=== PATIENT | female | born 1985 | race Caucasian/White ===

== ENCOUNTER → 2018-01-15 | Outpatient (CLI) | payer OTHER ==
[2018-01-15 15:40] LABS: BASO % 0.2 %; BASO ABS # 0.02 K/uL (0-0.2); EOS % 2.3 %; HEMATOCRIT 38.8 % (37-47); HEMOGLOBIN 13.9 g/dL (12.0-16.0); IG# 0.02 K/uL (0.00-0.02); LYMPH % 28.4 %; LYMPH ABS # 2.46 K/uL (1.2-3.4); MEAN CELL VOLUME 87.4 fL (80-100); MEAN CORPUSCULAR HEMOGLOBIN 31.3 pg (25-34); MEAN CORPUSCULAR HGB CONC 35.8 g/dl (32-36); MEAN PLATELET VOLUME 10.5 fL (7.4-10.4); MONO % 6.9 %; NEUT ABS # 5.37 K/uL (1.4-6.5); PLATELET COUNT 227 K/uL (130-400); RED CELL DISTRIBUTION WIDTH CV 12.2 % (11.5-14.5); RED CELL DISTRIBUTION WIDTH SD 39.2 fL (36.4-46.3); WHITE BLOOD COUNT 8.67 K/uL (4.8-10.8)
== END | disposition home or self-care (01) ==
LOC: MERGE 14:43 → C.LAB1850 14:43
PROVIDERS: ATTEND Obstetrics & Gynecology
DX: Z34.01 Encounter for supervision of normal first pregnancy, first trimester (principal)

== ENCOUNTER → 2018-06-25 | Outpatient (CLI) | payer OTHER | END | disposition home or self-care (01) | LOC: C.LAB1850 16:58 | PROVIDERS: ATTEND Obstetrics & Gynecology | DX: Z34.01 Encounter for supervision of normal first pregnancy, first trimester (principal) ==

== ENCOUNTER → 2018-07-23 | Outpatient (CLI) | payer OTHER | END | disposition home or self-care (01) | LOC: C.LAB1850 16:33 | PROVIDERS: ATTEND Obstetrics & Gynecology | DX: Z34.01 Encounter for supervision of normal first pregnancy, first trimester (principal) ==

== ENCOUNTER 2019-01-06 13:49 | Inpatient (IN) ==
[2019-01-06] MEDS ORDERED: OXYTOCIN 30 UNITS/500 ML BAG IV PRN ×2 (14:17→19:09)
[2019-01-06] MEDS ORDERED: LACTATED RINGER'S 1,000 ML IV SCH (14:30)
--- NOTE | 2019-01-06 14:32 | Anesthesiology Consultation ---
Date of Service January 06, 2019 Assessment & Plan Chart Review Chart Review: Acceptable Risk for Labor Epidural and Patient seen in Pre Admission Testing Consults Requested none ASA ASA2 Proposed Anesthesia Anesthesia Type: Labor Epidural Risk / Benefits Reviewed With: PT / POA / Parent / Guardian, Accepts Plan and Informed Consent Obtained NPO Date Last Intake of Fluids: 01/06/19 Time Last Intake of Fluids: 14:30 Date Last Intake of Solids: 01/06/19 Time Last Intake of Solids: 12:00 History Height/Weight Height: 1.52 m Weight: 64.682 kg Allergies Allergy/AdvReac Type Severity Reaction Status Date / Time No Known Allergies Allergy Verified 01/06/19 14:27 Medications Active Medications Generic Name Dose Route Start Last Admin Trade Name Freq PRN Reason Stop Dose Admin Lactated Ringer's 1,000 mls @ 999 mls/hr 01/06/19 14:17 01/06/19 14:34 Lr IV 02/05/19 14:16 999 mls/hr .Q1H1M PRN Administration (Pre-Anesthesia) Past Medical History Medical History No pertinent past medical history Past Surgical History Surgical History H/O wisdom tooth extraction Past Anesthesia History No Hx of Anesthesia Complications and No Family Hx of Anesthesia Complications History of PONV No Motion Sickness Screening History of Motion Sickness: No Social History Smoking Status: Never smoker Do You Dip or Chew Tobacco: No Hx Alcohol Use: No Hx Substance Use: No substance use type: does not use Exercise / Class Metabolic Activity II 4-5 Yardwork/Stairs/Walk up hill Physical Exam Vital Signs Last Vital Signs Temp 36.5 C 01/06/19 13:54 Pulse 83 01/06/19 14:37 Resp 20 01/06/19 13:54 BP 121/69 01/06/19 13:55 Pulse Ox 100 01/06/19 14:37 ENMT Mouth: no TMJ abnormality and no TMJ clicking Thyromental Distance: < 3.5 Finger Breadths Mallampati Class: II Neck normal visual inspection; neck extension not limited Respiratory Auscultation: lungs clear to auscultation bilaterally Cardiovascular Rate/Rhythm: regular rate and regular rhythm Psychiatric Orientation: alert and oriented x 3 Testing Laboratory Results 01/06/19 14:27
[2019-01-06] MEDS: LACTATED RINGER'S 1,000 ML IV PRN ×2 (14:34→15:35)
[2019-01-06 14:36] LABS: Hematocrit (blood only) 41.7 % (37-47); Hemoglobin 14.4 g/dL (12.0-16.0); Mean Platelet Volume 11.3 fL (7.4-10.4); Platelet Count 146 K/uL (130-400); RDW Coefficient of Variation 13.4 % (11.5-14.5); RDW Standard Deviation 43.9 fL (36.4-46.3); Red Blood Count 4.58 M/uL (4.2-5.4); White Blood Count 10.86 K/uL (4.8-10.8)
--- NOTE | 2019-01-06 14:36 | History & Physical Report ---
Date of Service January 06, 2019 Assessment & Plan (1) Normal intrauterine in third trimester: 33yo at 40.4 weeks GA. Labor Fetus: Cat 1 Labor: Progressing. Will augment PRN. AROM following epidural Vitals: WNL Pain: Epidural GBS Neg History of Present Illness Chief Complaint: CTX Primary Care Provider: Odalys Hebert 33yo at 40.4 weeks GA. Patient present with contractions. Denies LOF, VB. Good FM. Patient was /-2 in clinic on PNI: No significant issues Labs: A-, Rubella imm, GBS -. Allergies Allergy/AdvReac Type Severity Reaction Status Date / Time No Known Allergies Allergy Verified 01/06/19 14:27 Patient History Social History marital status: Current Living Situation: Spouse Feels Safe at Home: Yes Smoking Status: Never smoker Do You Dip or Chew Tobacco: No Hx Alcohol Use: No Hx Substance Use: No Beliefs That Will Affect Care: None Preferred Language: Thai Communication Ability: Effective Physical Exam 2 Vital Signs (Past 24 Hours): Last Vital Signs Temp 36.5 C 01/06/19 13:54 Pulse 99 H 01/06/19 13:55 Resp 20 01/06/19 13:54 BP 121/69 01/06/19 13:55 Genitourinary: Manual OB Exam: + cervical dilation 6 cm, + cervical effacement 80% and + station -1 OB Exam Monitor Tracing: + category I
[2019-01-06 14:45] LABS: Mean Corpuscular Hgb Conc 34.5 g/dL (32-36)
[2019-01-06] MEDS ORDERED: BUPIVACAINE 0.25% 30 ML VIAL ONE (14:50)
[2019-01-06] MEDS ORDERED: ePHEDrine sulfate 50 MG/ML AMP ONE (14:51)
[2019-01-06] MEDS ORDERED: fentaNYL citrate 100 MCG/2 ML VIAL ONE (14:51)
[2019-01-06] MEDS ORDERED: fentaNYL 2MCG/ML ROPIV 1.25MG/ML 100 ML BAG EPI ONE (14:51)
[2019-01-06] MEDS ORDERED: NALOXONE HCL 0.4 MG/1 ML VIAL/CARP IV PRN (15:35)
[2019-01-06] MEDS ORDERED: ONDANSETRON INJ 2 MG/ML 2 ML VIAL IV PRN (15:35)
[2019-01-06] MEDS ORDERED: NALBUPHINE HCL INJ 10 MG/ML AMP IV PRN (15:35)
[2019-01-06] MEDS ORDERED: fentaNYL 2MCG/ML ROPIV 1.25MG/ML 100 ML BAG EPI PRN (15:35)
[2019-01-06] MEDS ORDERED: LACTATED RINGER'S 1,000 ML IV PRN (15:35)
[2019-01-06] MEDS ORDERED: PROMETHAZINE HCL 12.5 MG in SODIUM CHLORIDE 0.9% 50 ML IV PRN (15:35)
[2019-01-06] MEDS ORDERED: NALOXONE HCL 1 MG in SODIUM CHLORIDE 0.9% 1000ML 1,000 ML IV PRN (15:35)
[2019-01-06] MEDS ORDERED: ePHEDrine sulfate 50 MG/ML AMP IV PRN (15:35)
[2019-01-06] MEDS ORDERED: DiphenhydrAMINE HCL 50 MG/ML VIAL IV PRN (15:35)
[2019-01-06] MEDS ORDERED: HYDROCORTISONE ACETATE 25 MG SUPP PR PRN (19:09)
[2019-01-06] MEDS ORDERED: BENZOCAINE 20% AER SPR 82.5 GM CAN EXT PRN (19:09)
[2019-01-06] MEDS ORDERED: BISACODYL 10 MG SUPP PR PRN (19:09)
[2019-01-06] MEDS ORDERED: DIPHTHERIA/TETANUS/PERTUSSIS 0.5 ML SYR/VIAL IM ONE (19:09)
[2019-01-06] MEDS ORDERED: SUPERCREAM 0.870% 15 GM JAR EXT PRN (19:09)
[2019-01-06] MEDS: IBUPROFEN 600 MG TAB PO PRN ×2 (19:22→23:42)
--- NOTE | 2019-01-06 19:54 | Delivery Summary ---
DATE OF OPERATION: 01/06/2019 PROCEDURE: Normal spontaneous vaginal delivery with vaginal and labial laceration repair. SURGEON: Agustin Strong MD PREOPERATIVE DIAGNOSES: 1. Single intrauterine at 40 weeks 4 days gestational age. 2. Rh negative. 3. GBS negative. 4. Labor. POSTOPERATIVE DIAGNOSES: Same, delivered. ESTIMATED BLOOD LOSS: 350 mL. DRAINS: None. FLUIDS: Continuous lactated ringer. URINE OUTPUT: 300 mL via straight catheterization after delivery. COMPLICATIONS: None. FINDINGS: Viable male infant with weight pending, Apgars of 7 and 9 at 1 and 5 minutes respectively. INDICATIONS: Ms. Mcguire is a 33-year-old admitted at 40 weeks 4 days gestational age in active labor. At initial evaluation, she was found to be 7 cm dilated, 80% effaced, -1 station. The patient progressed in labor, underwent artificial rupture of membranes at 9.5 cm dilation. The patient then progressed to complete and +1 station and felt the urge to push and pushed over intact perineum. The patient pushed for approximately an hour and 15 minutes. DESCRIPTION OF PROCEDURE: The patient progressed to 10 cm dilated, 100% effaced, positive 1 station, pushed over intact perineum with epidural anesthesia and delivered a viable male with weight and Apgars as noted above. Head of the delivered in RAMO position, rest into left transverse. One nuchal cord was noted which was easily reduced. Body and shoulders quickly followed. The was noted to be vigorous soon after delivery and a 1-minute delayed cord clamping was initiated, after which the cord was double clamped and cut. Cord blood was then obtained. Attention was then turned to deliver the placenta, it was delivered intact with 3-vessel cord with gentle cord traction. On inspection of the vagina, perineum, and cervix, there was noted to be a left vaginal laceration with extension to the left labia majora and minora. An 8 mL of lidocaine was distributed throughout the laceration and was closed with 3-0 Vicryl. The needle, sponge and instrument counts were correct at completion of the case. I attest to the content of the Intraoperative Record and any orders documented therein. Any exception s are noted below.
[2019-01-06] MEDS: DOCUSATE SODIUM 100 MG CAP PO SCH (21:00)
[2019-01-06] MEDS: ACETAMINOPHEN 325 MG TAB PO PRN (23:43)
--- NOTE | 2019-01-07 03:23 | Anesthesia Procedure Note ---
Date of Service January 07, 2019 Anesthesia Post Epidural Note Vital Signs Vital Signs: Temp Pulse Pulse Resp BP BP Pulse Ox 01/06/19 23:25 37.8 C H 89 18 114/75 01/06/19 20:41 111 H 112/71 01/06/19 20:40 18 01/06/19 20:11 120 H 109/68 01/06/19 20:10 18 01/06/19 19:56 104 H 105/69 01/06/19 19:40 114 H 18 110/56 L 01/06/19 19:26 105 H 115/57 L 01/06/19 19:25 18 01/06/19 19:10 37.3 C 105 H 18 115/57 L 78 L 01/06/19 18:55 96 H 113/65 01/06/19 18:48 117 H 116/59 L 01/06/19 18:39 106 H 123/56 L 01/06/19 18:33 110 H 113/66 01/06/19 18:18 122 H 131/90 01/06/19 18:03 148 H 138/65 01/06/19 17:52 147 H 78 L 01/06/19 17:48 150 H 146/72 H 01/06/19 17:47 146 H 97 01/06/19 17:46 146 H 91 01/06/19 17:42 138 H 97 01/06/19 17:37 144 H 100 01/06/19 17:34 134 H 147/61 H 01/06/19 17:32 123 H 99 01/06/19 17:27 123 H 99 01/06/19 17:22 121 H 100 01/06/19 17:18 110 H 142/96 H 01/06/19 17:17 105 H 100 01/06/19 17:12 106 H 99 01/06/19 17:07 109 H 100 01/06/19 17:03 115 H 124/82 01/06/19 17:02 102 H 98 01/06/19 16:57 97 H 100 01/06/19 16:52 116 H 100 01/06/19 16:48 100 H 127/74 01/06/19 16:47 99 H 99 01/06/19 16:42 104 H 98 01/06/19 16:37 97 H 99 01/06/19 16:36 100 H 123/71 01/06/19 16:32 97 H 100 01/06/19 16:27 101 H 100 01/06/19 16:22 104 H 100 01/06/19 16:17 100 H 123/79 100 01/06/19 16:13 88 133/78 01/06/19 16:12 93 H 100 01/06/19 16:07 99 H 117/68 100 01/06/19 16:02 92 H 100 01/06/19 16:01 94 H 127/72 01/06/19 15:59 84 126/71 01/06/19 15:57 93 H 123/68 100 01/06/19 15:55 97 H 131/72 01/06/19 15:53 93 H 126/76 01/06/19 15:52 98 H 100 01/06/19 15:51 112 H 123/74 01/06/19 15:49 87 130/64 01/06/19 15:47 94 H 116/66 100 01/06/19 15:43 101 H 155/82 H 01/06/19 15:42 92 H 100 01/06/19 15:41 94 H 112/68 01/06/19 15:39 102 H 109/73 01/06/19 15:37 88 116/75 100 01/06/19 15:35 101 H 126/70 01/06/19 15:33 94 H 123/69 01/06/19 15:32 95 H 100 01/06/19 15:31 93 H 130/66 01/06/19 15:29 87 129/64 01/06/19 15:27 88 116/70 100 01/06/19 15:25 91 H 116/66 01/06/19 15:23 96 H 128/73 01/06/19 15:22 93 H 100 01/06/19 15:21 88 127/71 01/06/19 15:19 100 H 139/79 01/06/19 15:17 88 132/70 100 01/06/19 15:15 80 133/65 01/06/19 15:13 97 H 134/72 01/06/19 15:12 97 H 100 01/06/19 15:11 93 H 136/66 01/06/19 15:09 100 H 140/66 01/06/19 15:07 88 124/61 100 01/06/19 15:05 101 H 130/67 01/06/19 15:03 100 H 131/65 01/06/19 15:02 98 H 100 01/06/19 15:01 103 H 139/68 01/06/19 14:59 92 H 129/66 01/06/19 14:57 94 H 131/67 100 01/06/19 14:52 82 100 01/06/19 14:47 79 100 01/06/19 14:42 83 100 01/06/19 14:37 83 100 01/06/19 14:32 98 H 100 01/06/19 13:55 99 H 121/69 01/06/19 13:54 36.5 C 20 Pain Intensity Bilateral Lower Abdomen: Pain Intensity: 3 Notes Mental Status: alert / awake / arousable and participated in evaluation Nausea / Vomiting: adequately controlled Pain: adequately controlled Airway Patency, RR, SpO2: stable & adequate BP & HR: stable & adequate Hydration State: stable & adequate Neuraxial Anesthesia: was administered and sensory block resolved Anesthetic Complications: no major complications apparent and Pt Satisfied with anesthetic care Epidural: Removed without complications and With tip intact Notes: Small bruise at sight of epidural placement. Patient denies ACOSTA. She has been ambulating without difficulty and denies any residual numbness or tingling.
[2019-01-07 06:53] LABS: Hemoglobin 10.9 g/dL (12.0-16.0); Mean Corpuscular Hgb Conc 34.1 g/dL (32-36); Mean Corpuscular Volume 91.7 fL (80-100); Mean Platelet Volume 10.9 fL (7.4-10.4); Platelet Count 134 K/uL (130-400); RDW Coefficient of Variation 13.4 % (11.5-14.5); RDW Standard Deviation 44.8 fL (36.4-46.3); Red Blood Count 3.49 M/uL (4.2-5.4); White Blood Count 14.72 K/uL (4.8-10.8)
--- NOTE | 2019-01-07 07:09 | Anesthesia Procedure Note ---
Date of Service January 07, 2019 Anesthesia Post Epidural Note Vital Signs Vital Signs: Temp Pulse Pulse Resp BP BP Pulse Ox 01/07/19 05:00 37.1 C 89 18 114/75 01/06/19 23:25 37.8 C H 89 18 114/75 01/06/19 20:41 111 H 112/71 01/06/19 20:40 18 01/06/19 20:11 120 H 109/68 01/06/19 20:10 18 01/06/19 19:56 104 H 105/69 01/06/19 19:40 114 H 18 110/56 L 01/06/19 19:26 105 H 115/57 L 01/06/19 19:25 18 01/06/19 19:10 37.3 C 105 H 18 115/57 L 78 L 01/06/19 18:55 96 H 113/65 01/06/19 18:48 117 H 116/59 L 01/06/19 18:39 106 H 123/56 L 01/06/19 18:33 110 H 113/66 01/06/19 18:18 122 H 131/90 01/06/19 18:03 148 H 138/65 01/06/19 17:52 147 H 78 L 01/06/19 17:48 150 H 146/72 H 01/06/19 17:47 146 H 97 01/06/19 17:46 146 H 91 01/06/19 17:42 138 H 97 01/06/19 17:37 144 H 100 01/06/19 17:34 134 H 147/61 H 01/06/19 17:32 123 H 99 01/06/19 17:27 123 H 99 01/06/19 17:22 121 H 100 01/06/19 17:18 110 H 142/96 H 01/06/19 17:17 105 H 100 01/06/19 17:12 106 H 99 01/06/19 17:07 109 H 100 01/06/19 17:03 115 H 124/82 01/06/19 17:02 102 H 98 01/06/19 16:57 97 H 100 01/06/19 16:52 116 H 100 01/06/19 16:48 100 H 127/74 01/06/19 16:47 99 H 99 01/06/19 16:42 104 H 98 01/06/19 16:37 97 H 99 01/06/19 16:36 100 H 123/71 01/06/19 16:32 97 H 100 01/06/19 16:27 101 H 100 01/06/19 16:22 104 H 100 01/06/19 16:17 100 H 123/79 100 01/06/19 16:13 88 133/78 01/06/19 16:12 93 H 100 01/06/19 16:07 99 H 117/68 100 01/06/19 16:02 92 H 100 01/06/19 16:01 94 H 127/72 01/06/19 15:59 84 126/71 01/06/19 15:57 93 H 123/68 100 01/06/19 15:55 97 H 131/72 01/06/19 15:53 93 H 126/76 01/06/19 15:52 98 H 100 01/06/19 15:51 112 H 123/74 01/06/19 15:49 87 130/64 01/06/19 15:47 94 H 116/66 100 01/06/19 15:43 101 H 155/82 H 01/06/19 15:42 92 H 100 01/06/19 15:41 94 H 112/68 01/06/19 15:39 102 H 109/73 01/06/19 15:37 88 116/75 100 01/06/19 15:35 101 H 126/70 01/06/19 15:33 94 H 123/69 01/06/19 15:32 95 H 100 01/06/19 15:31 93 H 130/66 01/06/19 15:29 87 129/64 01/06/19 15:27 88 116/70 100 01/06/19 15:25 91 H 116/66 01/06/19 15:23 96 H 128/73 01/06/19 15:22 93 H 100 01/06/19 15:21 88 127/71 01/06/19 15:19 100 H 139/79 01/06/19 15:17 88 132/70 100 01/06/19 15:15 80 133/65 01/06/19 15:13 97 H 134/72 01/06/19 15:12 97 H 100 01/06/19 15:11 93 H 136/66 01/06/19 15:09 100 H 140/66 01/06/19 15:07 88 124/61 100 01/06/19 15:05 101 H 130/67 01/06/19 15:03 100 H 131/65 01/06/19 15:02 98 H 100 01/06/19 15:01 103 H 139/68 01/06/19 14:59 92 H 129/66 01/06/19 14:57 94 H 131/67 100 01/06/19 14:52 82 100 01/06/19 14:47 79 100 01/06/19 14:42 83 100 01/06/19 14:37 83 100 01/06/19 14:32 98 H 100 01/06/19 13:55 99 H 121/69 01/06/19 13:54 36.5 C 20 Pain Intensity Bilateral Lower Abdomen: Pain Intensity: 3 Notes Mental Status: alert / awake / arousable Nausea / Vomiting: adequately controlled Pain: adequately controlled Airway Patency, RR, SpO2: stable & adequate BP & HR: stable & adequate Hydration State: stable & adequate Neuraxial Anesthesia: was administered Anesthetic Complications: no major complications apparent Epidural: Removed without complications and With tip intact Notes: patient has been ambulating w/o back pain;w/o lower extremity weakness, paresthesias, numbness or pain.No c/o bowel or bladder incontinence.Patient is neurologically intact.
--- NOTE | 2019-01-07 07:44 | Obstetrical Progress Note ---
Date of Service <Teetee Jasso MD - Last Filed: 01/07/19 07:44> January 07, 2019 Assessment & Plan <Teetee Jasso MD - Last Filed: 01/07/19 07:44> (1) (spontaneous vaginal delivery): 33 YO AT 40.4 WEEKS ON Dec. A-, RUBELLA IMMUNE, gbs NEG DISCHARGE TODAY-instructions reviewed Day #:: 1 Subjective <Teetee Jasso MD - Last Filed: 01/07/19 07:44> Ambulation: ambulating normally Voiding: no voiding problems Passing Gas:: Yes Diet Tolerance:: regular diet Lochia:: Moderate Feeding Type:: breast feeding Current Pain Level(1-10): 3 Constitutional: no fever and no chills Respiratory: no dyspnea Cardiovascular: no chest pain, no palpitations, no lightheadedness and no calf pain Gastrointestinal: no nausea and no vomiting Genitourinary (female): no dysuria Neurologic: no headache(s) Physical Exam <Teetee Jasso MD - Last Filed: 01/07/19 07:44> Vital Signs (Past 24 Hours) Last Vital Signs Temp 37.1 C 01/07/19 05:00 Pulse 89 01/07/19 05:00 Resp 18 01/07/19 05:00 BP 114/75 01/07/19 05:00 Pulse Ox 78 L 01/06/19 19:10 Constitutional WD/WN, vitals as above Respiratory normal respiratory effort, lungs clear to auscultation Cardiovascular RRR, no murmur, no edema Extremities: no calf tenderness Genitourinary OB Exam Abdomen: + fundal height Fundus: + firm and + relation to umbilicus (1 BELOW) Results & Data <Teetee Jasso MD - Last Filed: 01/07/19 07:44> Laboratory Results Laboratory Results - last 24 hr 01/06/19 01/07/19 14:27 06:38 WBC 10.86 H 14.72 H RBC 4.58 3.49 L Hgb 14.4 10.9 L D Hct 41.7 32.0 L MCV 91.0 91.7 MCH 31.4 31.2 MCHC 34.5 34.1 RDW Std Deviation 43.9 44.8 RDW Coeff of Chano 13.4 13.4 Plt Count 146 134 MPV 11.3 H 10.9 H Medications Administered Home Medications vit no.[id number] [ Vitamin] 1 tab PO HS 01/06/19 [History Confirmed 01/06/19] Active Medications Acetaminophen (Tylenol) 650 mg PO Q6H PRN PRN Reason: Pain/ACOSTA/Fever Stop: 02/05/19 19:08 Last Admin: 01/06/19 23:43 Dose: 650 mg Benzocaine (Dermoplast Pain Relieving [place]) 1 appln EXT PRN PRN PRN Reason: Perineal Discomfort Stop: 02/05/19 19:08 Last Admin: 01/06/19 21:00 Dose: 82.5 appln Bisacodyl (Dulcolax) 5 mg PO 1999 [facility] Stop: 01/07/19 20:01 Bisacodyl (Dulcolax) 10 mg SD DAILY PRN PRN Reason: No BM on 2nd post- day Stop: 02/05/19 19:08 Cocaine HCl (Supercream 0.870%) 1 gm EXT BID PRN PRN Reason: Hemorrhoidal Inflammation Stop: 01/20/19 19:08 Docusate Sodium (Colace) 100 mg PO BID [facility] Stop: 02/05/19 20:59 Last Admin: 01/06/19 21:00 Dose: 100 mg Hydrocortisone (Anusol Hc) 25 mg SD BID PRN PRN Reason: Hemorrhoidal Inflammation Stop: 02/05/19 19:08 Oxytocin (Pitocin) 30 units in 500 mls @ 333.333 mls/hr IV .Q1H30M PRN; Protocol PRN Reason: BLEEDING CONTROL Stop: 02/05/19 19:08 Ibuprofen (Motrin) 600 mg PO Q4H PRN PRN Reason: Pain/ACOSTA/Cramping/Fever Stop: 02/05/19 19:08 Last Admin: 01/06/19 23:42 Dose: 600 mg Prenat Multivit/Guzzler Builder/Iron/Folic Ac ( Vitamin) 1 tab PO QAM [facility] Stop: 02/06/19 08:59 <Agustin Strong MD - Last Filed: 01/10/19 09:23> Co-Signing Physician Notes Patient evaluated and agree with the above finding and plan
[2019-01-07] MEDS: ACETAMINOPHEN 325 MG TAB PO PRN ×2 (08:05→18:46)
[2019-01-07] MEDS: IBUPROFEN 600 MG TAB PO PRN ×3 (08:05→22:12)
[2019-01-07] MEDS: PRENATAL VITAMIN 1 TAB PO SCH (08:06)
[2019-01-07] MEDS: DOCUSATE SODIUM 100 MG CAP PO SCH ×2 (08:06→21:21)
[2019-01-07] MEDS ORDERED: BISACODYL 5 MG TABEC PO SCH (20:00)
[2019-01-08] MEDS: ACETAMINOPHEN 325 MG TAB PO PRN ×2 (00:45→12:14)
[2019-01-08 06:43] LABS: Hematocrit (blood only) 29.3 % (37-47); Hemoglobin 9.7 g/dL (12.0-16.0)
--- NOTE | 2019-01-08 06:49 | Obstetrical Progress Note ---
Date of Service <Teetee Jasso MD - Last Filed: 01/08/19 06:49> January 08, 2019 Assessment & Plan <Teetee Jasso MD - Last Filed: 01/08/19 06:49> (1) (spontaneous vaginal delivery): 33 YO AT 40.4 WEEKS ON Dec. A-, RUBELLA IMMUNE, gbs NEG PPD #2 DISCHARGE TODAY-instructions reviewed Subjective <Teetee Jasso MD - Last Filed: 01/08/19 06:49> Ambulation: ambulating normally Voiding: no voiding problems Passing Gas:: Yes Diet Tolerance:: regular diet Lochia:: Moderate Feeding Type:: breast feeding Current Pain Level(1-10): 3 Constitutional: no fever and no chills Respiratory: no dyspnea Cardiovascular: no chest pain, no palpitations and no edema Gastrointestinal: no nausea and no vomiting Neurologic: no headache(s) Physical Exam <Teetee Jasso MD - Last Filed: 01/08/19 06:49> Vital Signs (Past 24 Hours) Last Vital Signs Temp 36.9 C 01/07/19 20:30 Pulse 80 01/07/19 20:30 Resp 18 01/07/19 20:30 BP 111/74 01/07/19 20:30 Pulse Ox 78 L 01/06/19 19:10 Respiratory normal respiratory effort, lungs clear to auscultation Cardiovascular RRR, no murmur, no edema Genitourinary OB Exam Abdomen: + fundal height Fundus: + firm Results & Data <Teetee Jasso MD - Last Filed: 01/08/19 06:49> Laboratory Results Laboratory Results - last 24 hr 01/07/19 01/07/19 01/08/19 06:38 06:38 06:26 WBC 14.72 H RBC 3.49 L Hgb 10.9 L D 9.7 L Hct 32.0 L 29.3 L MCV 91.7 MCH 31.2 MCHC 34.1 RDW Std Deviation 44.8 RDW Coeff of Chano 13.4 Plt Count 134 MPV 10.9 H Blood Type A Negative Antibody Screen NEGATIVE Screen Negative Medications Administered Home Medications vit no.[id number] [ Vitamin] 1 tab PO HS 01/06/19 [History Confirmed 01/06/19] Active Medications Acetaminophen (Tylenol) 650 mg PO Q6H PRN PRN Reason: Pain/ACOSTA/Fever Stop: 02/05/19 19:08 Last Admin: 01/08/19 00:45 Dose: 650 mg Benzocaine (Dermoplast Pain Relieving [place]) 1 appln EXT PRN PRN PRN Reason: Perineal Discomfort Stop: 02/05/19 19:08 Last Admin: 01/06/19 21:00 Dose: 82.5 appln Bisacodyl (Dulcolax) 10 mg [place] DAILY PRN PRN Reason: No BM on 2nd post- day Stop: 02/05/19 19:08 Cocaine HCl (Supercream 0.870%) 1 gm EXT BID PRN PRN Reason: Hemorrhoidal Inflammation Stop: 01/20/19 19:08 Docusate Sodium (Colace) 100 mg PO BID [facility] Stop: 02/05/19 20:59 Last Admin: 01/07/19 21:21 Dose: 100 mg Hydrocortisone (Anusol Hc) 25 mg [place] BID PRN PRN Reason: Hemorrhoidal Inflammation Stop: 02/05/19 19:08 Oxytocin (Pitocin) 30 units in 500 mls @ 333.333 mls/hr IV .Q1H30M PRN; Protocol PRN Reason: BLEEDING CONTROL Stop: 02/05/19 19:08 Ibuprofen (Motrin) 600 mg PO Q4H PRN PRN Reason: Pain/ACOSTA/Cramping/Fever Stop: 02/05/19 19:08 Last Admin: 01/07/19 22:12 Dose: 600 mg Prenat Multivit/[place]/Iron/Folic Ac ( Vitamin) 1 tab PO QAM [facility] Stop: 02/06/19 08:59 Last Admin: 01/07/19 08:06 Dose: 1 tab <Charu Escudero MD - Last Filed: 01/08/19 08:29> Co-Signing Physician Notes Discharge home today. Did receive RhoGAM.
[2019-01-08] MEDS: DOCUSATE SODIUM 100 MG CAP PO SCH (08:35)
[2019-01-08] MEDS: IBUPROFEN 600 MG TAB PO PRN ×2 (08:35→15:38)
[2019-01-08] MEDS: PRENATAL VITAMIN 1 TAB PO SCH (08:35)
--- NOTE | 2019-01-08 12:19 | Obstetrical Progress Note ---
Date of Service January 08, 2019 Subjective Patient is reporting neck pain, feels like it is musculoskeletal, feels like it is related to pushing. When she sits up, and turns her head, her neck muscles ache. Normal vitals. Benign physical exam. Offered dose of flexeril to see if this helps. She is agreeable. Physical Exam 2 Vital Signs (Past 24 Hours): Last Vital Signs Temp 36.7 C 01/08/19 07:50 Pulse 90 01/08/19 07:50 Resp 20 01/08/19 07:50 BP 104/67 01/08/19 07:50 Pulse Ox 78 L 01/06/19 19:10
[2019-01-08] MEDS ORDERED: CYCLOBENZAPRINE HCL 10 MG TAB PO ONE (13:00)
--- NOTE | 2019-01-08 16:03 | Obstetrical Progress Note ---
Date of Service January 08, 2019 Subjective Reports improvement with neck pain/stiffness after rest and 1 dose flexeril. Patient feels like she can move much better. Would like to go home. Will give script for 10tabs flexeril. She is aware of instructions to return immediately to hospital if any increased pain, nonresolution of pain, or new onset of any additional symptoms (such as headache, weakness, dizziness, nausea, vomiting, etc). She is agreeable. Notation of vitals that are automatically pulling into note: patient's O2 saturation is not actually 78; this is a reading that was likely erroneous from Monday. There is no obvious way to take it out of [place]. Physical Exam 2 Vital Signs (Past 24 Hours): Last Vital Signs Temp 36.7 C 01/08/19 07:50 Pulse 90 01/08/19 07:50 Resp 20 01/08/19 07:50 BP 104/67 01/08/19 07:50 Pulse Ox 78 L 01/06/19 19:10
== END 2019-01-08 18:08 | disposition home or self-care (01) | DRG 807 ==
LOC: OPB 13:49 → 4S1 13:50 → 4S2 21:15

== ENCOUNTER 2024-06-28 23:50 | Inpatient (IN) ==
[2024-06-29] MEDS ORDERED: LIDOCAINE 1% LOCAL 20 ML VIAL INFIL PRN (00:37)
[2024-06-29] MEDS ORDERED: OXYTOCIN 30 UNITS/NSS 30 UNITS/500 ML BAG IV PRN ×2 (00:37→01:51)
[2024-06-29] MEDS ORDERED: CALCIUM CARBONATE 500 MG CHEWABLE TAB PO PRN (00:37)
--- NOTE | 2024-06-29 00:44 | History & Physical Report ---
Date of Service June 29, 2024 Assessment & Plan (1) Multigravida of advanced maternal age: Plan: IUP at 39 weeks with SPROM and contractions GBS- negative epidural when requested anticipate vaginal History of Present Illness Primary Care Provider: Odalys Hebert DO Patient is a 38 yo female EDC07[birth year] who presents at 39 1/7 weeks with SPROM for clear fluid and spontaneous contractions Allergies Allergy/AdvReac Type Severity Reaction Status Date / Time No Known Allergies Allergy Verified 06/29/24 00:12 Home Medications Medication Instructions Recorded Confirmed Type vits no.124-ferrous fum 1 tab PO HS 01/06/19 06/29/24 History 27 mg iron-folic acid 800 mcg tablet ( Vitamin) ascorbic acid (vitamin C) 500 mg 500 mg PO QAM 11/02/22 06/29/24 History tablet (Vitamin C) aspirin [Baby Aspirin] 1 tab PO DAILY 12/18/23 06/29/24 History Patient History Medical History 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 Denies family history of Ovarian cancer Breast cancer Colorectal cancer Hypertension Social History (Updated 12/18/23 @ 08:54 by Ade Houston) Smoking Status: Never smoker Second Hand Exposure: No; Do You Dip or Chew Tobacco: No; Hx Alcohol Use: Yes Hx Substance Use: No Preferred Language: Martiniquais Communication Ability: Effective Visual Impairment: No Limitations Chro Required: No Beliefs That Will Affect Care: None marital status: marital status details: Jair Mcguire (37) [phone] Current Living Situation: Spouse Current Living Situation Comment: house with and son current occupational status: employed 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 [employer] Other Information That Helps Us Care for You: No Feels Safe at Home: Yes Safety Concerns: Feels Safe At This Time Assistive Devices: None Review of Systems All systems reviewed & are unremarkable except as noted in HPI & below Physical Exam Constitutional: WD/WN, vitals as above Psychiatric: A+Ox3, euthymic affect Genitourinary: OB Exam Abdomen: + vertex and + irregular contractions Manual OB Exam: + cervical dilation 4 cm OB Exam Monitor Tracing: + external FHT monitor used, + external uterine monitor used, + category I and + normal FHT variability Results & Data Vital Signs (Past 12 Hours) Vital Signs Temp Pulse Resp BP O2 Del Method 06/29/24 00:13 99.5 F 18 Room Air 06/29/24 00:08 99.5 F 86 18 120/71 Code Status & VTE Plan VTE Prophylaxis Plan VTE Prophylaxis will be ordered: No Coding Level of Care Code None Diagnoses Multigravida of advanced maternal age O09.529
[2024-06-29] MEDS: LACTATED RINGER'S 1,000 ML IV PRN (01:00)
[2024-06-29 01:21] LABS: Hematocrit (blood only) 37.4 % (37.0-47.0); Hemoglobin 12.9 g/dl (12.0-16.0); Mean Corpuscular Hemoglobin 31.2 pg (25.0-34.0); Mean Corpuscular Hgb Conc 34.5 g/dL (32.0-36.0); Mean Corpuscular Volume 90.6 fL (80.0-100.0); Platelet Count 135 K/uL (130-400); RDW Coefficient of Variation 13.4 % (11.5-14.5); RDW Standard Deviation 43.8 fL (36.4-46.3); Red Blood Count 4.13 M/uL (4.20-5.40); White Blood Count 9.37 K/ul (4.8-10.8)
[2024-06-29] MEDS ORDERED: SODIUM CHLORIDE 0.9% PF INJ 10 ML VIAL EPI PRN (03:18)
[2024-06-29] MEDS ORDERED: LIDOCAINE 2% MPF LOCAL 5 ML VIAL EPI PRN (03:18)
[2024-06-29] MEDS ORDERED: BUPIVACAINE 0.25% PF 30 ML VIAL EPI PRN (03:18)
[2024-06-29] MEDS ORDERED: NALOXONE HCL 0.4 MG/1 ML VIAL/CARP IV PRN (03:18)
[2024-06-29] MEDS ORDERED: fentaNYL citrate PF 100 MCG/2 ML VIAL EPI PRN (03:18)
[2024-06-29] MEDS ORDERED: NALOXONE HCL 1 MG in SODIUM CHLORIDE 0.9% 1,000 ML IV PRN (03:18)
[2024-06-29] MEDS ORDERED: ROPIVACAINE 0.5% PF 5 MG/ML 20 ML VIAL EPI PRN (03:18)
[2024-06-29] MEDS ORDERED: diphenhydrAMINE 50 MG/ML VIAL IV PRN (03:18)
[2024-06-29] MEDS ORDERED: ePHEDrine sulfate 50 MG/ML AMP IV PRN (03:18)
[2024-06-29] MEDS ORDERED: NALBUPHINE HCL 5 MG in SYRINGE 0 ML IV PRN (03:18)
[2024-06-29] MEDS ORDERED: PROMETHAZINE HCL 6.25 MG in SODIUM CHLORIDE 0.9% 50 ML IV PRN (03:18)
--- NOTE | 2024-06-29 03:18 | Anesthesiology Consultation ---
Date of Service June 29, 2024 Assessment & Plan Chart Review Chart Review: Patient NOT seen in Pre Admission Testing and Acceptable Risk for Labor Epidural Consults Requested none ASA ASA2 Proposed Anesthesia Anesthesia Type: Labor Epidural Risk / Benefits Reviewed With: PT / POA / Parent / Guardian, Accepts Plan and Informed Consent Obtained History Height/Weight Height: 5 ft Weight: 64.41 kg Allergies Allergy/AdvReac Type Severity Reaction Status Date / Time No Known Allergies Allergy Verified 06/29/24 00:12 Medications Home Medications Medication Instructions Recorded Confirmed Last Taken vits [id number] fum 1 tab PO HS 01/06/19 06/29/24 06/28/24 27 mg iron-folic acid 800 mcg tablet ( Vitamin) ascorbic acid (vitamin C) 500 mg 500 mg PO QAM 11/02/22 06/29/24 06/28/24 tablet (Vitamin C) aspirin [Baby Aspirin] 1 tab PO DAILY 12/18/23 06/29/24 06/28/24 Active Medications Generic Name Dose Route Start Last Admin Trade Name Freq PRN Reason Stop Dose Admin Lactated Ringer's 1,000 mls @ 125 mls/hr 06/29/24 00:37 06/29/24 03:07 Lr IV 07/01/24 00:36 125 mls/hr .Q8H PRN Administration L&D Protocol Protocol Past Medical History Medical History 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 Denies family history of Ovarian cancer Breast cancer Colorectal cancer Hypertension Past Surgical History Surgical History S/P dilatation and curettage H/O wisdom tooth extraction Past Anesthesia History No Hx of Anesthesia Complications and No Family Hx of Anesthesia Complications History of PONV No Hx of PONV and No Hx of Motion Sickness Social History Smoking Status: Never smoker Do You Dip or Chew Tobacco: No Hx Alcohol Use: Yes alcohol intake frequency: a few times a month Hx Substance Use: No substance use type: does not use Physical Exam Vital Signs Last Vital Signs Temp 36.6 C 06/29/24 02:36 Pulse 71 06/29/24 03:15 Resp 18 06/29/24 02:36 BP 125/68 06/29/24 02:36 Pulse Ox 98 06/29/24 03:15 O2 Del Method Room Air 06/29/24 00:13 ENMT Mouth: no dentition abnormality Thyromental Distance: > or= 3.5 Finger Breadths Mallampati Class: II Neck normal visual inspection Respiratory normal respiratory effort Auscultation: lungs clear to auscultation bilaterally Cardiovascular Rate/Rhythm: regular rate and regular rhythm Psychiatric Orientation: alert Testing Laboratory Results 06/29/24 00:46
[2024-06-29] MEDS: BUPIVACAINE 0.25% PF 30 ML VIAL EPI STA (03:33)
[2024-06-29] MEDS: SODIUM CHLORIDE 0.9% PF INJ 10 ML VIAL EPI STA (03:34)
[2024-06-29] MEDS: LIDOCAINE 2%/EPINEPHRINE 1:200,000 20 ML PF EPI STA (03:34)
[2024-06-29] MEDS: fentANYL 2 MCG/ML BUPIVacaine 0.125%-NSS 100ML BAG EPI PRN (03:35)
[2024-06-29] MEDS: fentaNYL citrate PF 100 MCG/2 ML VIAL ONE (03:54)
[2024-06-29] MEDS: ePHEDrine sulfate 50 MG/ML AMP ONE (03:54)
[2024-06-29] MEDS: BUPIVACAINE 0.25% PF 30 ML VIAL ONE (03:54)
[2024-06-29] MEDS: SODIUM CHLORIDE 0.9% PF INJ 10 ML VIAL ONE (03:54)
[2024-06-29] MEDS: LIDOCAINE 2%/EPINEPHRINE 1:200,000 20 ML PF ONE (03:54)
[2024-06-29] MEDS: fentaNYL citrate PF 100 MCG/2 ML VIAL EPI STA (03:55)
[2024-06-29] MEDS: fentANYL 2 MCG/ML BUPIVacaine 0.125%-NSS 100ML BAG ONE (03:55)
[2024-06-29] MEDS: ONDANSETRON INJ 2 MG/ML 2 ML VIAL IV PRN (04:02)
[2024-06-29] MEDS: OXYTOCIN 30 UNITS/NSS 30 UNITS/500 ML BAG IV PRN (05:29)
[2024-06-29] MEDS ORDERED: oxyCODONE/ACETAMINOPHEN 5mg/325mg TAB PO PRN (05:36)
[2024-06-29] MEDS ORDERED: ACETAMINOPHEN 325 MG TAB PO PRN (05:36)
[2024-06-29] MEDS ORDERED: HYDROCORTISONE ACETATE 25 MG SUPP PR PRN (05:36)
[2024-06-29] MEDS ORDERED: bisacodyL 10 MG SUPP PR PRN (05:36)
--- NOTE | 2024-06-29 05:41 | Delivery Summary ---
Vaginal Delivery Summary Date of Service June 29, 2024 Vaginal Delivery Summary Patient is a 38-year-old 4 para 1-0-2-1 female EDC 07/05/2023 who presents at 39-1/7 weeks with spontaneous rupture of membranes and spontaneous onset of labor. She received effective epidural analgesia. She progressed to full dilation and pushed effectively through 2 contractions for delivery of a viable female infant. There was a loose nuchal cord which reduced as the rest the delivered. She was placed on the mother's abdomen for further attention and drying. She was vigorous crying and moving all 4 limbs. After 1 minute, the cord was clamped and cut. Cord blood was obtained. The placenta was then expressed intact with a three-vessel cord. bleeding was controlled with dilute Pitocin and fundal massage. Perineum was inspected and noted to be intact with a very superficial abrasion which was not bleeding and therefore not repaired. QBL is 101 mL. Mother and doing well after delivery. [facility] Vaginal Delivery Charge Delivery Type Details: [facility]
[2024-06-29] MEDS: DIPHTHER/TETAN/PERTUS Vaccine (Tdap, Adol/Adult) 0.5mL IM ONE (05:58)
[2024-06-29] MEDS: PRENATAL VITAMIN 1 TAB PO SCH (07:40)
[2024-06-29] MEDS: DOCUSATE SODIUM 100 MG CAP PO SCH (07:40)
[2024-06-29] MEDS: BENZOCAINE 20% SPRY 85 APPLN/85 GM CAN EXT PRN (07:40)
--- NOTE | 2024-06-29 08:06 | Anesthesia Procedure Note ---
Date of Service June 29, 2024 Anesthesia Post Epidural Note Vital Signs Vital Signs: Temp Pulse Resp BP Pulse Ox O2 Del Method 37.4 C 72 18 108/56 L 97 Room Air 06/29/24 05:30 06/29/24 08:03 06/29/24 06:30 06/29/24 08:03 06/29/24 05:25 06/29/24 00:13 Pain Intensity Bilateral Abdomen: Pain Intensity: 2 Notes Mental Status: alert / awake / arousable and participated in evaluation Nausea / Vomiting: adequately controlled Pain: adequately controlled Airway Patency, RR, SpO2: stable & adequate BP & HR: stable & adequate Hydration State: stable & adequate Neuraxial Anesthesia: was administered and sensory block resolved Anesthetic Complications: no major complications apparent and Pt Satisfied with anesthetic care Epidural: Removed without complications and With tip intact
[2024-06-29] MEDS: IBUPROFEN 600 MG TAB PO PRN (12:13)
[2024-06-29] MEDS: ACETAMINOPHEN 325 MG TAB PO PRN (15:20)
[2024-06-30 07:41] LABS: Hematocrit (blood only) 35.7 % (37.0-47.0); Hemoglobin 12.2 g/dl (12.0-16.0); Mean Corpuscular Hemoglobin 30.9 pg (25.0-34.0); Mean Corpuscular Hgb Conc 34.2 g/dL (32.0-36.0); Mean Corpuscular Volume 90.4 fL (80.0-100.0); Mean Platelet Volume 12.3 fL (9.4-12.4); Platelet Count 127 K/uL (130-400); RDW Coefficient of Variation 13.5 % (11.5-14.5); RDW Standard Deviation 44.9 fL (36.4-46.3); Red Blood Count 3.95 M/uL (4.20-5.40); White Blood Count 10.29 K/ul (4.8-10.8)
--- NOTE | 2024-06-30 09:45 | Obstetrical Progress Note ---
Date of Service June 30, 2024 Assessment & Plan (1) state: Desires D/C today Subjective Ambulation: ambulating normally Voiding: no voiding problems Passing Gas:: Yes Diet Tolerance:: regular diet Lochia:: Small Feeding Type:: breast feeding Physical Exam Constitutional WD/WN, vitals as above Eyes PERRL, conjunctivae normal, anicteric sclerae Neck normal visual inspection Respiratory normal respiratory effort and able to speak in complete sentences; no respiratory distress and no labored breathing Cardiovascular Rate/Rhythm: regular rate and regular rhythm Extremities: no edema Chest (Breasts) Chest: normal inspection of chest Gastrointestinal (Abdomen) Inspection/Auscultation: abdomen normal to inspection Soft, postgravid Psychiatric A+Ox3, euthymic affect Genitourinary OB Exam Abdomen: + fundal height Fundus: + firm and + relation to umbilicus (fundus just below umbilicus); not tender Results & Data Vital Signs (Past 12 Hours) Vital Signs Temp Pulse Resp BP Pulse Ox O2 Del Method 06/30/24 07:08 98.1 F 60 17 100/65 96 Room Air 06/30/24 03:45 97.5 F L 50 L 16 100/64 Room Air 06/29/24 23:40 97.7 F 68 16 97/61 L Room Air
[2024-06-30] MEDS ORDERED: bisacodyL 5 MG TABEC PO SCH (20:00)
== END 2024-06-30 11:28 | disposition home or self-care (01) | DRG 807 ==
LOC: OPB 23:50 → 4S1 23:55 → 4E2 06-29 08:37